=== PATIENT | male | born 1970 | race Caucasian/White ===

== ENCOUNTER 2021-12-12 19:13 | Emergency (ER) | payer OTHER ==
[2021-12-12] MEDS ORDERED: BACITRAYCIN PLU28 GM TP (21:49)
== END 2021-12-12 22:05 | disposition home or self-care (01) ==
LOC: ER1 19:13
DX: S01.81XA Laceration without foreign body of other part of head, initial encounter (principal); W01.10XA Fall on same level from slipping, tripping and stumbling with subsequent striking against unspecified object, initial encounter; Z23 Encounter for immunization
CPT/HCPCS: 12013; 90471; 90715; 99282